=== PATIENT | male | born 1995 | race Caucasian/White ===

== ENCOUNTER 2019-05-09 06:58 | Emergency (ER) | payer MEDICAID ==
[~2019-05-09] VITALS: Ht 177.8 cm; Wt 79.4 kg
[2019-05-09 07:08] VITALS: BP 160/72
[2019-05-09] MEDS ORDERED: FLEXERIL PO (07:42)
[2019-05-09] MEDS ORDERED: NORCO 5-325 TA1 EAC1 PO (07:42)
[2019-05-09] MEDS ORDERED: AUGMENTIN 875-1 EACH PO (07:42)
[2019-05-09] MEDS ORDERED: PERIDEX15 ML SWISH&SPIT (07:42)
[2019-05-09] MEDS ORDERED: IBUPROFEN 800800 M1 PO (07:42)
== END 2019-05-09 07:57 | disposition home or self-care (01) ==
LOC: M.ERS 06:58
DX: K08.89 Other specified disorders of teeth and supporting structures (principal); Z88.0 Allergy status to penicillin

== ENCOUNTER 2020-05-31 19:45 | Emergency (ER) | payer MEDICAID ==
[~2020-05-31] VITALS: Ht 182.9 cm; Wt 65.3 kg
[~2020-05-31 19:45] MED LIST: AUGMENTIN 875-1 EACH PO; FLEXERIL PO; IBUPROFEN 800800 M1 PO; NORCO 5-325 TA1 EAC1 PO; PERIDEX15 ML SWISH&SPIT
[2020-05-31 22:15] VITALS: BP 142/79
== END 2020-05-31 22:15 | disposition home or self-care (01) ==
LOC: M.ERS 19:45
DX: S62.355A Nondisplaced fracture of shaft of fourth metacarpal bone, left hand, initial encounter for closed fracture (principal); S62.357A Nondisplaced fracture of shaft of fifth metacarpal bone, left hand, initial encounter for closed fracture; M54.6 Pain in thoracic spine; R10.9 Unspecified abdominal pain; R06.02 Shortness of breath; F17.210 Nicotine dependence, cigarettes, uncomplicated; Z88.8 Allergy status to other drugs, medicaments and biological substances; W22.8XXA Striking against or struck by other objects, initial encounter; Y93.89 Activity, other specified; Y92.89 Other specified places as the place of occurrence of the external cause; Y99.8 Other external cause status